=== PATIENT | male | born 1965 | race Caucasian/White ===

== ENCOUNTER → 2018-08-27 | Day surgery (SDC) | payer OTHER ==
[~2018-08-27] MED LIST: Lactated Ringers 1,000 ML IV SCH; Propofol 200 MG/20 ML SDV IV ONE
--- NOTE | 2018-08-30 09:46 | OR ---
DATE OF OPERATION: 08/27/2018 PREOPERATIVE DIAGNOSIS: SCREENING COLONOSCOPY. POSTOPERATIVE DIAGNOSIS: SCREENING COLONOSCOPY. SURGEON: Tyrese Durham MD PROCEDURE: FULL-LENGTH COLONOSCOPY. ANESTHESIA: MAC via [employer]. COMPLICATIONS: None. SPECIMEN: None. FINDINGS: Normal full-length colonoscopy. RECOMMENDATIONS: Followup colonoscopy every 10 years. INDICATIONS: The patient was seen by his primary physician, Dr. Demetrice Yancey at the [facility]. He was sent for a screening colonoscopy due to his age. DESCRIPTION OF PROCEDURE: The patient was prepped and draped, placed in the left lateral decubitus position. A lubricated Olympus colonoscope was inserted and easily advanced to the cecum. We were able to directly visualize the ileocecal valve and appendiceal orifice. The bowel prep was fine. Upon withdrawal of the scope throughout the entire length of the colon, I could find no signs of polyps, mass, ulceration, or bleeding sites. No vascular abnormalities or signs of colitis. The patient had no signs of any diverticula. The rectal vault was benign. Retroflexion of scope in the rectum showed no anal lesions. Air was suctioned and the scope was removed without complication. To note, the patient does have signs of obstructive sleep apnea during sedation and I will ask the patient to address this with Dr. Yancey for possible sleep study. WILLIAM/DANIELLE /[id number]
== END ==
LOC: CC.SDS 09:39
PROVIDERS: ATTEND Family Medicine
DX: Z12.11 Encounter for screening for malignant neoplasm of colon (principal)
CPT/HCPCS: 00812; 45378; G0121; J2704; J7120

== ENCOUNTER 2025-01-27 08:28 | Day surgery (SDC) | payer OTHER ==
[2025-01-27] MEDS ORDERED: Flumazenil 0.1 MG/ML 5 ML MDV ONE (08:55)
[2025-01-27] MEDS ORDERED: Ketamine 200 MG/20 ML MDV ONE (08:55)
[2025-01-27] MEDS ORDERED: Propofol 200 MG/20 ML SDV ONE (08:55)
[2025-01-27] MEDS ORDERED: Midazolam 1 MG/ML 2 ML SDV ONE (08:55)
[2025-01-27] MEDS ORDERED: fentaNYL 50 MCG/ML SDV ONE (08:55)
[2025-01-27] MEDS: Lactated Ringers 1,000 ML IV SCH (10:04)
== END 2025-01-27 10:30 | disposition home or self-care (01) ==
LOC: CC.SDS 08:28
PROVIDERS: ATTEND Family Medicine
DX: K29.50 Unspecified chronic gastritis without bleeding (principal); K31.7 Polyp of stomach and duodenum; K22.10 Ulcer of esophagus without bleeding; D50.9 Iron deficiency anemia, unspecified; K21.9 Gastro-esophageal reflux disease without esophagitis; I10 Essential (primary) hypertension; Z79.899 Other long term (current) drug therapy
CPT/HCPCS: 43239; 45378; 87077; J2003; J2250; J2704; J3010; J3490; J7120; 00813; 88305; 88312; 88342